=== PATIENT | male | born 1975 | race Two or more races ===

== ENCOUNTER 2017-07-11 04:19 | Emergency (ER) | payer OTHER ==
[~2017-07-11] VITALS: Ht 180.3 cm; Wt 89.2 kg
[2017-07-11] MEDS ORDERED: MECLIZINE CHEWABLE 25 MG TAB ONE (04:53)
[2017-07-11] MEDS ORDERED: ONDANSETRON ODT 4 MG ONE ×2 (04:53→05:50)
[2017-07-11] MEDS ORDERED: MECLIZINE CHEWABLE 25 MG TAB PO ONE (05:00)
[2017-07-11] MEDS ORDERED: ONDANSETRON ODT 4 MG PO ONE (05:00)
[2017-07-11 05:17] LABS: MICROSCOPIC NOT IND
[2017-07-11 05:50] LABS: BASOPHILS # (AUTO) 0.04 x10^3/uL (0-0.1); BASOPHILS % (AUTO) 1 % (0-1); EOSINOPHILS # (AUTO) 0.17 x10^3/uL (0-0.4); EOSINOPHILS % (AUTO) 3 % (1-7); LYMPHOCYTES # (AUTO) 1.92 x10^3/uL (1-3.4); LYMPHOCYTES % (AUTO) 33 % (22-44); MD NO; MEAN CORPUSCULAR HEMOGLOBIN 29.9 pg (27.5-34.5); MEAN CORPUSCULAR HGB CONC 34.2 g/dL (33.2-36.2); MEAN CORPUSCULAR VOLUME 87.6 fL (81-97); MONOCYTES # (AUTO) 0.45 x10^3/uL (0.2-0.8); MONOCYTES % (AUTO) 8 % (2-9); NEUTROPHILS # (AUTO) 3.19 x10^3/uL (1.8-6.8); NEUTROPHILS % (AUTO) 55 % (42-75); PLATELET COUNT 231 x10^3/uL (130-400); RED BLOOD COUNT 4.87 x10^6/uL (4.38-5.82); RED CELL DISTRIBUTION WIDTH 13.2 % (9.4-14.8)
[2017-07-11] MEDS ORDERED: KETOROLAC 30 MG/1 ML ONE (05:51)
[2017-07-11 05:53] LABS: ALBUMIN 3.7 g/dL (3.4-5.0); ANION GAP 4 mmol/L (5-15); CALCIUM 8.6 mg/dL (8.5-10.1); CHLORIDE 110 mmol/L (98-107); CREATININE 0.97 mg/dL (0.7-1.3)
[2017-07-11 05:58] LABS: TROPONIN I < 0.015 ng/mL (0.000-0.045)
[2017-07-11 06:50] VITALS: BP 106/48
== END 2017-07-11 06:53 | disposition home or self-care (01) ==
LOC: ED 06:20
DX: R42 Dizziness and giddiness (principal); Z88.1 Allergy status to other antibiotic agents
CPT/HCPCS: 36415; 71045; 80048; 81003; 82040; 84484; 85025; 93005; 99285; Q0162

== ENCOUNTER → 2018-02-22 | Outpatient (CLI) | payer OTHER | END | disposition home or self-care (01) | LOC: CFH 08:28 | PROVIDERS: ATTEND Otolaryngology | DX: J34.2 Deviated nasal septum (principal); J34.89 Other specified disorders of nose and nasal sinuses | CPT/HCPCS: 70486 ==

== ENCOUNTER → 2018-03-06 | Outpatient (CLI) | payer OTHER ==
[~2018-03-06] MED LIST: GADOBUTROL 10 MMOL/10 ML PFS ONE
== END | disposition home or self-care (01) ==
LOC: CFH 08:18
PROVIDERS: ATTEND Otolaryngology
DX: H81.12 Benign paroxysmal vertigo, left ear (principal); J30.1 Allergic rhinitis due to pollen; H90.3 Sensorineural hearing loss, bilateral; H93.11 Tinnitus, right ear
CPT/HCPCS: 70553; A9585